=== PATIENT | male | born 1975 | race African-American/Black ===

== ENCOUNTER 2018-07-11 06:05 | Emergency (ER) | payer BC, OTHER ==
[~2018-07-11] VITALS: Ht 175.3 cm; Wt 72.0 kg
[2018-07-11 06:33] VITALS: BP 139/96
== END 2018-07-11 10:40 | disposition left against medical advice (07) ==
LOC: ER 07:35
DX: Z53.21 Procedure and treatment not carried out due to patient leaving prior to being seen by health care provider (principal)

== ENCOUNTER 2019-04-02 09:00 | Emergency (ER) | payer OTHER ==
[~2019-04-02] VITALS: Ht 175.3 cm; Wt 68.0 kg
[2019-04-02] MEDS ORDERED: LIDOCAINE HCL 1% 20ML VIAL (Pyxis) INJ INFIL ONE (10:30)
[2019-04-02] MEDS ORDERED: KETOROLAC 60MG/2ML VIAL IM ONE (10:30)
[2019-04-02 11:58] VITALS: BP 128/75
== END 2019-04-02 12:04 | disposition home or self-care (01) ==
LOC: ER 09:00
DX: S01.01XA Laceration without foreign body of scalp, initial encounter (principal); X99.0XXA Assault by sharp glass, initial encounter; Y93.89 Activity, other specified; Y92.018 Other place in single-family (private) house as the place of occurrence of the external cause
CPT/HCPCS: 12001; 96372; 99283; J1885; J3490

== ENCOUNTER 2019-04-18 18:24 | Emergency (ER) | payer OTHER ==
[~2019-04-18] VITALS: Ht 177.8 cm; Wt 72.0 kg
[2019-04-18 21:20] VITALS: BP 123/79
== END 2019-04-18 21:23 | disposition home or self-care (01) ==
LOC: ER 18:24
DX: Z48.01 Encounter for change or removal of surgical wound dressing (principal)
CPT/HCPCS: 99281; Z7610

== ENCOUNTER 2024-08-10 00:30 | Emergency (ER) | payer OTHER ==
[~2024-08-10] VITALS: Ht 175.3 cm; Wt 82.0 kg
[2024-08-10 00:33] VITALS: BP 160/90; PULSE 92; RESP 18; TEMP 98.1; O2SAT 98
== END 2024-08-10 01:10 | disposition left against medical advice (07) ==
LOC: ER 00:30
DX: S20.211A Contusion of right front wall of thorax, initial encounter (principal); F12.90 Cannabis use, unspecified, uncomplicated; Y04.0XXA Assault by unarmed brawl or fight, initial encounter; Y93.89 Activity, other specified; Y92.89 Other specified places as the place of occurrence of the external cause; Y99.8 Other external cause status
CPT/HCPCS: 99283